=== PATIENT | female | born 1950 | race Caucasian/White ===

== ENCOUNTER 2016-09-15 16:20 | Inpatient (IN) | payer OTHER ==
[~2016-09-15] VITALS: Ht 160 cm; Wt 48.5 kg
[2016-09-15] MEDS ORDERED: SODIUM CHLORIDE 0.9% 1000ML BAG (SEPSIS BOLUS) IV ONE (17:15)
[2016-09-15] MEDS ORDERED: VANCOMYCIN 1 G PREMIX 200 ML IV SCH (17:45)
[2016-09-15] MEDS ORDERED: PIPERACILLIN/TAZ 3.375G PREMIX 50 ML IV ONE (17:45)
[2016-09-15] MEDS ORDERED: ACETAMINOPHEN 325MG TABLET PO ONE (17:45)
[2016-09-15 17:46] LABS: HEMATOCRIT. 22.9 % (36.0-48.0); HEMOGLOBIN. 7.8 g/dL (12.0-16.0); MEAN CORPUSCULAR HGB CONC 33.9 g/dL (31.0-37.0); MEAN CORPUSCULAR VOLUME 82.6 fL (81.0-99.0); MEAN PLATELET VOLUME 7.8 fl (7.4-10.4); PLATELET 263 x1000/uL (130-400); RED BLOOD CELL COUNT 2.78 mill/uL (4.2-5.4); RED CELL DISTRIBUTION WIDTH 14.3 % (11.6-14.6)
[2016-09-15 17:47] LABS: INR 1.2; PARTIAL THROMBOPLASTIN TIME 34.7 sec (24.0-34.0); PROTHROMBIN TIME 12.7 sec
[2016-09-15 17:51] LABS: DIFFERENTIAL COMMENT 1
[2016-09-15 17:52] LABS: WHITE BLOOD COUNT 0.6 x1000/uL (4.5-11.0)
[2016-09-15 17:56] LABS: ALANINE AMINOTRANSFERASE 34 IU/L (13-61); ANION GAP 12; CALCIUM 8.9 mg/dL (8.5-10.1); CARBON DIOXIDE 27 mEq/L (21-32); CHLORIDE 97 mEq/L (98-107); INDEX HEMOLYSI 1 (1-3); INDEX ICTERIC 1 (1-4); INDEX LIPEMIC 1 (1-3); NT PRO B-TYPE NATRIURETIC PEP 463 pg/mL (5-125); TROPONIN I < 0.02 ng/mL (0.00-0.04); UREA NITROGEN BLOOD 18 mg/dL (7-21); URIC ACID 2.9 mg/dL (2.6-7.2); eGFR 56 mL/min (>60)
[2016-09-15 17:58] LABS: LACTIC ACID 2.1 mmol/L (0.4-2.0)
[2016-09-15 17:59] LABS: MAGNESIUM 1.2 mg/dL (1.8-2.4)
[2016-09-15] MEDS ORDERED: MAGNESIUM 2 G PREMIX 50 ML IV ONE (18:00)
[2016-09-15 18:19] LABS: NUCLEATED RED BLOOD CELLS 1 /100 WBC
[2016-09-15 18:20] LABS: PLATELET ESTIMATE NORMAL
[2016-09-15 18:21] LABS: ACANTHOCYTES 1+
[2016-09-15 18:40] LABS: CLARITY URINE CLEAR (CLEAR); COLOR URINE YELLOW (YELLOW); GLUCOSE URINE NEGATIVE (NEGATIVE); KETONES URINE 1+ (NEGATIVE); LEUKOCYTE ESTERASE URINE NEGATIVE (NEGATIVE); NITRITE URINE NEGATIVE (NEGATIVE); OCCULT BLOOD URINE NEGATIVE (NEGATIVE); PH URINE 6.5 (4.5-8.0); PROTEIN URINE NEGATIVE (NEGATIVE); SPECIFIC GRAVITY URINE 1.013 (1.005-1.030); UROBILINOGEN URINE 0.2 E.U./dL (0.2-1.0)
[2016-09-15] MEDS ORDERED: SODIUM CHLORIDE 0.9% 1,000 ML IV ONE (20:09)
[2016-09-15] MEDS ORDERED: FENTANYL CITRATE/PF 50MCG/ML 2ML VIAL IV ONE (21:15)
[2016-09-15] MEDS ORDERED: ONDANSETRON HCL 4MG/2ML VIAL IV ONE (21:15)
[2016-09-15] MEDS ORDERED: ACETAMINOPHEN 325MG TABLET PO PRN (22:45)
[2016-09-15] MEDS ORDERED: IPRATROPIUM BROMIDE (0.02%) 0.5MG/2.5ML NEB HHN PRN (22:45)
[2016-09-15] MEDS ORDERED: IPRATROPIUM/ALBUTEROL 0.5-3(2.5)MG/3ML NEB INH PRN (22:45)
[2016-09-15] MEDS ORDERED: ONDANSETRON HCL 4MG/2ML VIAL IV PRN (22:45)
[2016-09-15] MEDS ORDERED: MORPHINE SULFATE 2 MG/ML CPJ (NOT FOR IM USE) IV PRN (23:00)
[2016-09-16] VITALS (56 sets, daily range): BP systolic 75–121; BP diastolic 33–73
[2016-09-16] MEDS ORDERED: PIPERACILLIN/TAZOBACTAM 3.375 G in DEXTROSE 5% WATER 50 ML IV SCH (03:00)
[2016-09-16] MEDS ORDERED: PIPERACILLIN/TAZ 3.375G PREMIX 50 ML IV SCH (03:00)
[2016-09-16] MEDS ORDERED: DEXTROSE 50% WATER 50ML SYRINGE IV PRN (03:30)
[2016-09-16] MEDS: BLOOD SUGAR DIAGNOSTIC STRIP TEST SCH ×4 (05:19→22:07)
[2016-09-16] MEDS: INSULIN LISPRO 100 UNITS/ML SUBCUT SCH ×4 (05:19→22:06)
[2016-09-16 08:36] LABS: MEAN CORPUSCULAR HEMOGLOBIN 28.5 pg (28.0-32.0); MEAN CORPUSCULAR HGB CONC 34.2 g/dL (31.0-37.0); MEAN CORPUSCULAR VOLUME 83.3 fL (81.0-99.0); MEAN PLATELET VOLUME 8.1 fl (7.4-10.4); PLATELET 249 x1000/uL (130-400); RED BLOOD CELL COUNT 3.73 mill/uL (4.2-5.4); RED CELL DISTRIBUTION WIDTH 13.9 % (11.6-14.6)
[2016-09-16 08:44] LABS: DIFFERENTIAL COMMENT 1; WHITE BLOOD COUNT 0.8 x1000/uL (4.5-11.0)
[2016-09-16] MEDS: PANTOPRAZOLE SODIUM 40 MG/VIAL IV SCH (08:44)
[2016-09-16 08:45] LABS: HEMOGLOBIN. 10.6 g/dL (12.0-16.0)
[2016-09-16 08:59] LABS: ALANINE AMINOTRANSFERASE 30 IU/L (13-61); ALBUMIN 2.7 g/dL (3.4-5.0); ANION GAP 13; BILIRUBIN DIRECT 0.3 mg/dL (0.0-0.2); CALCIUM 8.5 mg/dL (8.5-10.1); CARBON DIOXIDE 21 mEq/L (21-32); CHLORIDE 104 mEq/L (98-107); INDEX HEMOLYSI 2 (1-3); INDEX ICTERIC 1 (1-4); INDEX LIPEMIC 1 (1-3); IRON 26 ug/dL (50-175); MAGNESIUM 2.2 mg/dL (1.8-2.4); PHOSPHORUS 1.8 mg/dL (2.5-4.9); THYROID STIMULATING HORMONE 0.02 uIU/mL (0.36-3.74); TOTAL IRON BINDING CAPACITY 300 ug/dL (250-450); UREA NITROGEN BLOOD 11 mg/dL (7-21); eGFR > 60 mL/min (>60)
[2016-09-16] MEDS: VANCOMYCIN 750 MG PREMIX 150 ML IV SCH ×2 (10:54→23:18)
[2016-09-16 10:55] LABS: PLATELET ESTIMATE NORMAL
[2016-09-16] MEDS ORDERED: POTASSIUM PHOS,M-BASIC-D-BASIC 30 MMOL in DEXT 5% WATER 500 ML IV SCH (11:00)
[2016-09-16 11:48] LABS: T3 FREE 0.78 pg/ml (2.18-3.98); T4 FREE 1.24 ng/dL (0.76-1.46)
[2016-09-16] MEDS ORDERED: LEVOFLOXACIN 500MG PREMIX 100 ML IV SCH (12:00)
[2016-09-16] MEDS: METRONIDAZOLE 500 MG PREMIX 100 ML IV SCH ×2 (14:53→22:04)
[2016-09-16] MEDS ORDERED: TRIPLE OMEGA PO (15:21)
[2016-09-16] MEDS ORDERED: ANAS1TAB7 PO (15:21)
[2016-09-16] MEDS ORDERED: Glucosamine PO (15:21)
[2016-09-16] MEDS ORDERED: NAPR-679 PO (15:21)
[2016-09-16] MEDS ORDERED: TAMO20TA4 PO (15:21)
[2016-09-16] MEDS ORDERED: garlic PO (15:21)
[2016-09-16] MEDS ORDERED: VITAMINE C PO (15:21)
[2016-09-16] MEDS ORDERED: Calcium PO (15:21)
[2016-09-16] MEDS ORDERED: METF500T4 PO (15:21)
[2016-09-16] MEDS ORDERED: SIMV80TA70 PO (15:21)
[2016-09-16] MEDS ORDERED: LEVO100T PO (15:21)
[2016-09-16] MEDS ORDERED: ASPI-1035 PO (15:21)
[2016-09-16] MEDS: DEXT 5%/0.45% NACL 1000ML 1,000 ML IV SCH ×2 (16:43)
[2016-09-16] MEDS ORDERED: SODIUM CHLORIDE 0.9% 250 ML IV NR (16:45)
[2016-09-16] MEDS: CEFEPIME 2,000 MG in DEXT 5% WATER 100 ML IV SCH (20:33)
[2016-09-16] MEDS: FILGRASTIM 480 MCG/0.8 ML SUBCUT SCH (22:06)
[2016-09-17] VITALS (32 sets, daily range): BP systolic 92–143; BP diastolic 45–77
[2016-09-17 05:34] LABS: HEMATOCRIT. 28.1 % (36.0-48.0); HEMOGLOBIN. 9.8 g/dL (12.0-16.0); MEAN CORPUSCULAR HEMOGLOBIN 28.9 pg (28.0-32.0); MEAN CORPUSCULAR HGB CONC 34.8 g/dL (31.0-37.0); MEAN CORPUSCULAR VOLUME 83.1 fL (81.0-99.0); MEAN PLATELET VOLUME 8.3 fl (7.4-10.4); PLATELET 269 x1000/uL (130-400); RED BLOOD CELL COUNT 3.38 mill/uL (4.2-5.4); RED CELL DISTRIBUTION WIDTH 14.5 % (11.6-14.6)
[2016-09-17 05:36] LABS: DIFFERENTIAL COMMENT 1
[2016-09-17 05:38] LABS: WHITE BLOOD COUNT 1.8 x1000/uL (4.5-11.0)
[2016-09-17] MEDS: METRONIDAZOLE 500 MG PREMIX 100 ML IV SCH ×3 (06:30→21:41)
[2016-09-17 06:40] LABS: ANION GAP 13; CALCIUM 8.1 mg/dL (8.5-10.1); CARBON DIOXIDE 21 mEq/L (21-32); CHLORIDE 101 mEq/L (98-107); INDEX HEMOLYSI 1 (1-3); INDEX ICTERIC 1 (1-4); INDEX LIPEMIC 1 (1-3); MAGNESIUM 1.9 mg/dL (1.8-2.4); UREA NITROGEN BLOOD 7 mg/dL (7-21); eGFR > 60 mL/min (>60)
[2016-09-17 07:09] LABS: PHOSPHORUS 0.8 mg/dL (2.5-4.9)
[2016-09-17 07:40] LABS: ACANTHOCYTES 2+; PLATELET ESTIMATE NORMAL
[2016-09-17] MEDS: BLOOD SUGAR DIAGNOSTIC STRIP TEST SCH ×4 (07:50→20:33)
[2016-09-17] MEDS: INSULIN LISPRO 100 UNITS/ML SUBCUT SCH ×4 (07:50→21:07)
[2016-09-17] MEDS ORDERED: POTASSIUM PHOS,M-BASIC-D-BASIC 15 MMOL in DEXT 5% WATER 245 ML IV SCH (08:00)
[2016-09-17] MEDS: CEFEPIME 2,000 MG in DEXT 5% WATER 100 ML IV SCH ×2 (08:08→20:33)
[2016-09-17] MEDS: PANTOPRAZOLE SODIUM 40 MG/VIAL IV SCH (08:08)
[2016-09-17] MEDS: DEXT 5%/0.45% NACL 1000ML 1,000 ML IV SCH ×2 (09:25→12:12)
[2016-09-17] MEDS: VANCOMYCIN 750 MG PREMIX 150 ML IV SCH (13:24)
[2016-09-17] MEDS ORDERED: IRON SUCROSE COMPLEX 100 MG/5 ML ML IV SCH (14:00)
[2016-09-17] MEDS: FILGRASTIM 480 MCG/0.8 ML SUBCUT SCH (21:41)
[2016-09-19 04:23] LABS: OVA & PARASITE EXAM Final report (.)
== END 2016-09-17 23:18 | disposition short-term general hospital (02) | DRG 871 ==
LOC: ER 16:21 → CVICU 20:37 → SUPCPDRO 21:08
PROVIDERS: ADMIT Family Medicine Adult Medicine; ATTEND Family Medicine Adult Medicine
PROC: 30233N1 Transfusion of Nonautologous Red Blood Cells into Peripheral Vein, Percutaneous Approach (ICD-10-PCS; principal; 2016-09-16)
DX: A41.52 Sepsis due to Pseudomonas (principal); J96.00 Acute respiratory failure, unspecified whether with hypoxia or hypercapnia; R65.21 Severe sepsis with septic shock; C78.7 Secondary malignant neoplasm of liver and intrahepatic bile duct; E87.1 Hypo-osmolality and hyponatremia; E44.0 Moderate protein-calorie malnutrition; I31.3 Pericardial effusion (noninflammatory); K51.50 Left sided colitis without complications; J90 Pleural effusion, not elsewhere classified; N13.30 Unspecified hydronephrosis; Z68.1 Body mass index [BMI] 19.9 or less, adult; C50.911 Malignant neoplasm of unspecified site of right female breast; D64.81 Anemia due to antineoplastic chemotherapy; D18.09 Hemangioma of other sites; D50.9 Iron deficiency anemia, unspecified; D70.1 Agranulocytosis secondary to cancer chemotherapy; E11.9 Type 2 diabetes mellitus without complications; E83.42 Hypomagnesemia; E86.0 Dehydration; T45.1X5A Adverse effect of antineoplastic and immunosuppressive drugs, initial encounter; D63.1 Anemia in chronic kidney disease; E05.90 Thyrotoxicosis, unspecified without thyrotoxic crisis or storm; Z90.11 Acquired absence of right breast and nipple; Z90.49 Acquired absence of other specified parts of digestive tract; Z79.84 Long term (current) use of oral hypoglycemic drugs; Y92.89 Other specified places as the place of occurrence of the external cause
CPT/HCPCS: 36415; 70450; 71010; 74176; 80048; 80053; 80076; 80202; 81003; 82270; 82378; 82962; 83520; 83540; 83550; 83605; 83735; 83880; 84100; 84439; 84443; 84481; 84484; 84550; 85025; 85610; 85730; 86301; 86376; 86850; 86900; 86920; 87015; 87040; 87045; 87077; 87086; 87177; 87186; 87209; 87427; 87449; 87493; 89055; 93005; 93306; 93970; 96361; 96365; 96368; 96375; 99291; C9113; J0692; J1442; J1815; J1956; J2270; J2405; J2543; J3010; J3370; J3475; J3490; J7030; J7040; J7050; J7060; J7620; P9016; A4315

== ENCOUNTER 2016-09-26 16:23 | Emergency (ER) | payer OTHER ==
[~2016-09-26] VITALS: Ht 160 cm; Wt 60.0 kg
[2016-09-26] MEDS ORDERED: SODIUM CHLORIDE 0.9% 500 ML IV ONE (17:13)
[2016-09-26 17:57] LABS: BASOPHILS % 0.3 % (0.0-2.0); EOSINOPHILS % 0.1 % (0.0-5.0); HEMATOCRIT. 28.1 % (36.0-48.0); HEMOGLOBIN. 9.3 g/dL (12.0-16.0); LYMPHOCYTES % 14.6 % (20.0-50.0); MEAN CORPUSCULAR HEMOGLOBIN 28.4 pg (28.0-32.0); MEAN CORPUSCULAR VOLUME 85.6 fL (81.0-99.0); MEAN PLATELET VOLUME 8.5 fl (7.4-10.4); MONOCYTES % 9.8 % (2.0-8.0); NEUTROPHILS % 75.2 % (40.0-76.0); PLATELET 333 x1000/uL (130-400); RED BLOOD CELL COUNT 3.28 mill/uL (4.2-5.4); RED CELL DISTRIBUTION WIDTH 14.4 % (11.6-14.6)
[2016-09-26 18:00] LABS: INR 1.3; PROTHROMBIN TIME 13.6 sec
[2016-09-26 18:10] LABS: CARBON DIOXIDE 26 mEq/L (21-32); CHLORIDE 106 mEq/L (98-107); TROPONIN I 0.06 ng/mL (0.00-0.04)
[2016-09-26] MEDS ORDERED: DEXTROSE 50% WATER 50ML SYRINGE IV ONE (18:45)
[2016-09-26] MEDS ORDERED: POTASSIUM CHLORIDE 20MEQ TABLET SR PO ONE (18:45)
[2016-09-26 20:17] LABS: CLARITY URINE CLEAR (CLEAR); COLOR URINE YELLOW (YELLOW); GLUCOSE URINE NEGATIVE (NEGATIVE); KETONES URINE TRACE (NEGATIVE); LEUKOCYTE ESTERASE URINE NEGATIVE (NEGATIVE); NITRITE URINE NEGATIVE (NEGATIVE); OCCULT BLOOD URINE NEGATIVE (NEGATIVE); PH URINE 7.5 (4.5-8.0); PROTEIN URINE NEGATIVE (NEGATIVE); SPECIFIC GRAVITY URINE 1.009 (1.005-1.030); UROBILINOGEN URINE 0.2 E.U./dL (0.2-1.0)
[2016-09-26 21:04] VITALS: BP 97/61
== END 2016-09-26 21:42 | disposition short-term general hospital (02) ==
LOC: ER 16:24
DX: R53.1 Weakness (principal); R62.7 Adult failure to thrive; E88.09 Other disorders of plasma-protein metabolism, not elsewhere classified; C50.919 Malignant neoplasm of unspecified site of unspecified female breast; E11.649 Type 2 diabetes mellitus with hypoglycemia without coma; E86.0 Dehydration; Z85.3 Personal history of malignant neoplasm of breast
CPT/HCPCS: 36415; 71010; 80053; 81003; 82962; 83605; 83880; 84484; 85025; 85610; 87040; 87086; 93005; 93970; 96361; 96374; 99285; J7040